=== PATIENT | female | born 1985 | race African-American/Black ===

== ENCOUNTER 2019-02-23 09:37 | Emergency (ER) | payer OTHER ==
[2019-02-23 09:43] VITALS: BP 109/72; PULSE 90; TEMP 98.4; BMI 21.1
[2019-02-23 11:55] LABS: BASO % 0.5 % (0-2.0); EOS % 1.4 % (0-4.5); HEMATOCRIT 35.2 % (32.4-45.2); HEMOGLOBIN 11.7 GM/dL (10.7-15.3); LYMPH % 52.5 % (8-40); MCH 29.1 pg (25.7-33.7); MCHC 33.3 g/dl (32.0-36.0); MEAN CELL VOLUME 87.6 fl (80-96); MEAN PLT VOLUME 8.5 fl (7.5-11.1); MONO % 6.9 % (3.8-10.2); NEUT % 38.7 % (42.8-82.8); PLATELET COUNT 287 K/MM3 (134-434); RBC 4.01 M/mm3 (3.60-5.2); RDW 13.7 % (11.6-15.6); WHITE BLOOD COUNT 3.4 K/mm3 (4.0-10.0)
[2019-02-23 11:56] LABS: PH,URINE 5.5 (5.0-8.0); URINE APPEARANCE TURBID; URINE BILIRUBIN NEGATIVE (NEGATIVE); URINE COLOR DK YELLOW; URINE GLUCOSE (UA) NEGATIVE (NEGATIVE); URINE KETONE TRACE (NEGATIVE); URINE LEUK ESTERASE NEGATIVE (NEGATIVE); URINE NITRITE NEGATIVE (NEGATIVE); URINE PROTEIN TRACE (NEGATIVE); URINE UROBILINOGEN 0.2 mg/dL (0.2-1.0)
--- NOTE | 2019-02-23 11:59 | PDOC ---
History of Present Illness - General Chief Complaint: Pain Stated Complaint: RT LWR ABD PAIN / HEAVY CHEST Time Seen by Provider: 02/23/19 09:58 History Source: Patient Exam Limitations: No Limitations Past History - Travel Traveled outside of the country in the last 30 days: No Close contact w/someone who was outside of country & ill: No - Past Medical History Allergies/Adverse Reactions: Allergies Allergy/AdvReac Type Severity Reaction Status Date / Time Penicillins Allergy Unknown Verified 02/23/19 09:43 Home Medications: Ambulatory Orders Divalproex [Depakote -] 1,000 mg PO DAILY 01/23/15 Paroxetine HCl [Paxil] 90 mg PO DAILY 01/23/15 Ibuprofen [Motrin -] 400 mg PO Q6H #28 tablet 02/05/16 Ibuprofen 600 mg PO Q6H #30 tablet 02/23/19 Cardiac Disorders: Yes (PERICARDITIS) COPD: No Psychiatric Problems: Yes (ANXIETY/DEPRESSION.) - Suicide/Smoking/Psychosocial Hx Smoking History: Never smoked Number of Cigarettes Smoked Daily: 5 Information on smoking cessation initiated: No Hx Alcohol Use: No Drug/Substance Use Hx: No Substance Use Type: None Review of Systems - Review of Systems Able to Perform ROS?: Yes Comments:: 02/23/19 11:54 CONSTITUTIONAL: Absent: fever, chills, diaphoresis, generalized weakness, malaise, loss of appetite HEENT: Absent: rhinorrhea, nasal congestion, throat pain, throat swelling, difficulty swallowing, mouth swelling, ear pain, eye pain, visual Changes CARDIOVASCULAR: Present: chest tightness Absent: chest pain, loss of consciousness, palpitations , irregular heart rate, peripheral edema RESPIRATORY: Absent: cough, shortness of breath, dyspnea with exertion, orthopnea, wheezing, stridor, hemoptysis GASTROINTESTINAL: Present: lower abdominal pain Absent: abdominal distension, nausea, vomiting, diarrhea, constipation, melena, hematochezia GENITOURINARY: Absent: dysuria, frequency, urgency, hesitancy, hematuria, flank pain, genital pain MUSCULOSKELETAL: Absent: myalgia, arthralgia, joint swelling SKIN: Absent: rash, itching, pallor HEMATOLOGIC/IMMUNOLOGIC: Absent: easy bleeding, easy bruising, lymphadenopathy, frequent infections ENDOCRINE: Absent: unexplained weight gain, unexplained weight loss, heat intolerance, cold intolerance NEUROLOGIC: Absent: headache, focal weakness or paresthesias, dizziness, unsteady gait, seizure, mental status changes, bladder or bowel incontinence PSYCHIATRIC: Absent: anxiety, depression, suicidal or homicidal ideation, hallucinations. Is the patient limited Irish proficient: No *Physical Exam - Vital Signs Last Vital Signs Temp Pulse Resp BP Pulse Ox 98.4 F 90 19 109/72 100 02/23/19 09:41 02/23/19 09:41 02/23/19 09:41 02/23/19 09:41 02/23/19 09:41 - Physical Exam Comments: 02/23/19 11:50 GENERAL: Well developed, well nourished. Awake and alert. No acute distress. HEENT: Normocephalic, atraumatic. PERRLA, EOMI. No conjunctival pallor. Sclera are non- icteric. Moist mucous membranes. Oropharynx is clear. NECK: Supple. Full ROM. No JVD. Carotid pulses 2+ and symmetric, without bruits. No thyromegaly. No lymphadenopathy. CARDIOVASCULAR: Regular rate and rhythm. No murmurs, rubs, or gallops. Distal pulses are 2+ and symmetric. PULMONARY: No evidence of respiratory distress. Lungs clear to auscultation bilaterally. No wheezing, rales or rhonchi. ABDOMINAL: TTP of the R adenexal/lower quadrant over scar. Soft. Non-tender. Non- distended. No rebound or guarding. No organomegaly. Normoactive bowel sounds. MUSCULOSKELETAL Normal range of motion at all joints. No bony deformities or tenderness. No CVA tenderness. EXTREMITIES: No cyanosis. No clubbing. No edema. No calf tenderness. SKIN: Warm and dry. Normal capillary refill. No rashes. No jaundice. NEUROLOGICAL: Alert, awake, appropriate. Cranial nerves 2-12 intact. No deficits to light touch and temperature in face, upper extremities and lower extremities. No motor deficits in the in face, upper extremities and lower extremities. Normoreflexic in the upper and lower extremities. Normal speech. Toes are down- going bilaterally. Gait is normal without ataxia. PSYCHIATRIC: Cooperative. Good eye contact. Appropriate mood and affect. ED Treatment Course - LABORATORY CBC & Chemistry Diagram: 02/23/19 11:40 02/23/19 11:40 - RADIOLOGY Radiology Studies Ordered: Category Date Time Status TRANSVAGINAL ULTRASOUND US [US] Stat Ultrasound 02/23/19 10:41 Ordered Medical Decision Making - Medical Decision Making 02/23/19 13:54 The patient is a 33 y/o F with PMH of C-sections who presents to the ER today with lower abdominal pain. The patient states that she has had RLQ pain since 2014. The pain has been intermittent and fluctuates in intensity over the past 4 years. She notes the pain increased today so she came to the ER for evaluation. Of note she states that she was recently evaluated in [facility] where she had a negative CT scan one month ago. States LMP was two weeks ago. *DC/Admit/Observation/Transfer Diagnosis at time of Disposition: Atypical chest pain Ovarian cyst Qualifiers: Laterality: right Qualified Code(s): N83.201 - Unspecified ovarian cyst, right side - Discharge Dispostion Disposition: HOME Condition at time of disposition: Stable Decision to Admit order: No - Referrals Referrals: Jim Aguilar MD [Primary Care Provider] - Isauro Nicole MD [Staff Physician] - - Patient Instructions Printed Discharge Instructions: DI for Ovarian Cyst, DI for Atypical Chest Pain Additional Instructions: Your ultrasound shows a 2.1cm cyst on the R ovary This is most likely the cause of your pain Your lab work was normal Take Motrin 600mg every 6 hours as needed for pain Use warm compresses to the area Follow up with Dr. Nicole for further treatment options this week Return to the ER for worsening pain, heavy vaginal bleeding, fever, or if you have any new or concerning symptoms - Post Discharge Activity Forms/Work/School Notes: Back to Work
--- NOTE | 2019-02-23 12:29 | PDOC ---
*Physical Exam - Vital Signs Last Vital Signs Temp Pulse Resp BP Pulse Ox 98.4 F 90 19 109/72 100 02/23/19 09:41 02/23/19 09:41 02/23/19 09:41 02/23/19 09:41 02/23/19 09:41 - Physical Exam Comments: 02/23/19 12:28 The patient was examined by [MINO Locke] under my direct supervision. I personally evaluated the patient. I concur with the above findings and the plan of care. ED Treatment Course - LABORATORY CBC & Chemistry Diagram: 02/23/19 11:40 02/23/19 11:40 - ADDITIONAL ORDERS Additional order review: Laboratory Results 02/23/19 02/23/19 11:45 11:45 Urine Color Dk yellow Urine Appearance Turbid Urine pH 5.5 Ur Specific [place] 1.038 H Urine Protein Trace Urine Glucose (UA) Negative Urine Ketones Trace H Urine Blood Negative Urine Nitrite Negative Urine Bilirubin Negative Urine Urobilinogen 0.2 Ur Leukocyte Esterase Negative Urine HCG, Qual Negative 02/23/19 11:40 RBC 4.01 MCV 87.6 MCHC 33.3 RDW 13.7 D MPV 8.5 Neutrophils % 38.7 L Lymphocytes % 52.5 H Monocytes % 6.9 Eosinophils % 1.4 Basophils % 0.5 *DC/Admit/Observation/Transfer Diagnosis at time of Disposition: Ovarian cyst, Atypical chest pain - Discharge Dispostion Disposition: HOME Condition at time of disposition: Stable - Prescriptions Prescriptions: Ibuprofen 600 mg PO Q6H #30 tablet - Referrals Referrals: Jim Aguilar MD [Primary Care Provider] - Isauro Nicole MD [Staff Physician] - - Patient Instructions Printed Discharge Instructions: DI for Ovarian Cyst, DI for Atypical Chest Pain Additional Instructions: Your ultrasound shows a 2.1cm cyst on the R ovary This is most likely the cause of your pain Your lab work was normal Take Motrin 600mg every 6 hours as needed for pain Use warm compresses to the area Follow up with Dr. Nicole for further treatment options this week Return to the ER for worsening pain, heavy vaginal bleeding, fever, or if you have any new or concerning symptoms - Post Discharge Activity Forms/Work/School Notes: Back to Work
[2019-02-23 12:30] LABS: ALBUMIN 4.1 g/dl (3.4-5.0); BILIRUBIN,TOTAL 0.6 mg/dL (0.2-1); BLOOD UREA NITROGEN 6.2 mg/dL (7-18); CALCIUM 9.6 mg/dL (8.5-10.1); CREATININE 0.7 mg/dL (0.55-1.3); POTASSIUM 4.2 mmol/L (3.5-5.1); TOT PROT 6.8 g/dl (6.4-8.2)
[2019-02-23] MEDS ORDERED: IBUPROFEN 400 MG TABLET (FP) PO ONE ×2 (12:57→13:13)
--- NOTE | 2019-02-23 15:00 | EKG ---
Test Reason : Blood Pressure : / mmHG Vent. Rate : 060 BPM Atrial Rate : 060 BPM P-R Int : 000 ms QRS Dur : 078 ms QT Int : 388 ms P-R-T Axes : 000 113 142 degrees QTc Int : 388 ms JUNCTIONAL RHYTHM SEPTAL INFARCT , AGE UNDETERMINED LATERAL INFARCT , AGE UNDETERMINED ABNORMAL ECG WHEN COMPARED WITH ECG OF 23-JAN-2015 11:46, JUNCTIONAL RHYTHM HAS REPLACED SINUS RHYTHM QRS AXIS SHIFTED RIGHT SEPTAL INFARCT IS NOW PRESENT LATERAL INFARCT IS NOW PRESENT T WAVE INVERSION NOW EVIDENT IN LATERAL LEADS Confirmed by GUSTAVO BENTON, NHAN ([id number]) on 02/23/2019 3:00:44 PM Referred By: Confirmed By:NHAN CHEN MD
== END 2019-02-23 13:54 | disposition home or self-care (01) ==
LOC: JER 09:37
DX: R07.9 Chest pain, unspecified (principal); N83.201 Unspecified ovarian cyst, right side
CPT/HCPCS: 36415; 76830-TC; 80053; 81003; 82550; 84484; 84703; 85025; 87077; 87086; 93005; 93010; 99283-25

== ENCOUNTER 2023-03-24 09:50 | Emergency (ER) | payer OTHER ==
[2023-03-24 10:06] VITALS: BP 115/67; PULSE 95; RESP 18; TEMP 98.5; BMI 26.6
[2023-03-24 11:32] LABS: BASO % 0.5 % (0-2.0); EOS % 0.9 % (0-4.5); HEMATOCRIT 38.1 % (32.4-45.2); HEMOGLOBIN 12.8 GM/dL (10.7-15.3); LYMPH % 35.6 % (8-40); MCH 29.5 pg (25.7-33.7); MCHC 33.6 g/dl (32.0-36.0); MEAN CELL VOLUME 87.9 fl (80-96); MEAN PLT VOLUME 8.5 fl (7.5-11.1); MONO % 7.7 % (3.8-10.2); NEUT % 55.3 % (42.8-82.8); PLATELET COUNT 301 10^3/uL (134-434); RBC 4.33 M/mm3 (3.60-5.2); RDW 14.5 % (11.6-15.6)
[2023-03-24 11:41] LABS: INR 1.1 (0.83-1.09); PROTHROMBIN TIME (PATIENT) 12.8 SEC (9.7-13.0)
[2023-03-24 11:56] LABS: CHLORIDE 106 mmol/L (98-107); POTASSIUM 3.7 mmol/L (3.5-5.1); SODIUM 139 mmol/L (136-145)
[2023-03-24 11:58] LABS: ALBUMIN 3.7 g/dl (3.4-5.0); BLOOD UREA NITROGEN 6.6 mg/dL (7-18); CALCIUM 9.3 mg/dL (8.5-10.1); GLUCOSE,RANDOM 92 mg/dL (74-106)
[2023-03-24 11:59] LABS: MAGNESIUM 2.1 mg/dL (1.8-2.4)
[2023-03-24 12:00] LABS: ANION GAP 4 mmol/L (4-13); CO2 29 mmol/L (21-32)
[2023-03-24 12:01] LABS: CREATININE 0.8 mg/dL (0.55-1.3); SGOT/AST 19 U/L (15-37); SGPT/ALT 17 U/L (13-61)
[2023-03-24 12:03] LABS: BILIRUBIN,TOTAL 0.6 mg/dL (0.2-1); TOT PROT 7.1 g/dl (6.4-8.2)
[2023-03-24 12:04] LABS: ALK PHOS 46 U/L (45-117)
[2023-03-24 12:07] LABS: N-TERMINAL BNP 32.5 pg/ml (5-125)
== END 2023-03-24 16:23 | disposition home or self-care (01) ==
LOC: JER 09:50
DX: R07.9 Chest pain, unspecified (principal); M79.662 Pain in left lower leg; R06.02 Shortness of breath
CPT/HCPCS: 36415; 71046-TC-FY; 80053; 83735; 83880; 84484; 84702; 84703; 85025; 85610; 85730; 86850; 86900; 86901; 93005; 93010; 93970-TC; 99285-25

== ENCOUNTER 2023-03-27 09:01 | Emergency (ER) | payer OTHER ==
[2023-03-27 09:22] VITALS: BP 119/80; PULSE 95; RESP 18; TEMP 98; BMI 27.1
[2023-03-27 11:34] LABS: BASO % 0.8 % (0-2.0); EOS % 0.8 % (0-4.5); HEMATOCRIT 37.1 % (32.4-45.2); HEMOGLOBIN 12.7 GM/dL (10.7-15.3); LYMPH % 42.2 % (8-40); MCHC 34.2 g/dl (32.0-36.0); MEAN CELL VOLUME 87.5 fl (80-96); MEAN PLT VOLUME 8.9 fl (7.5-11.1); MONO % 8.3 % (3.8-10.2); NEUT % 47.9 % (42.8-82.8); PLATELET COUNT 299 10^3/uL (134-434); POTASSIUM 3.8 mmol/L (3.5-5.1); RBC 4.24 M/mm3 (3.60-5.2); RDW 14.5 % (11.6-15.6); WHITE BLOOD COUNT 4.2 K/mm3 (4.0-10.0)
[2023-03-27 11:36] LABS: ALBUMIN 3.6 g/dl (3.4-5.0); CALCIUM 9.7 mg/dL (8.5-10.1)
[2023-03-27 11:37] LABS: BLOOD UREA NITROGEN 5.4 mg/dL (7-18)
[2023-03-27 11:39] LABS: CREATININE 0.8 mg/dL (0.55-1.3)
[2023-03-27 11:41] LABS: BILIRUBIN,TOTAL 0.9 mg/dL (0.2-1)
== END 2023-03-27 12:52 | disposition home or self-care (01) ==
LOC: JER 09:01
DX: R07.9 Chest pain, unspecified (principal); M79.605 Pain in left leg
CPT/HCPCS: 36415; 71046-TC-FY; 80053; 84484; 84703; 85025; 93005; 93010; 93308; 99285-25

== ENCOUNTER 2023-04-19 08:39 | Emergency (ER) | payer OTHER ==
[2023-04-19 08:54] VITALS: TEMP 98.7; BMI 26.6
[2023-04-19] MEDS ORDERED: LACTATED RINGERS SOLUTION 1000 ML INFUS.BAG IV ONE (09:45)
[2023-04-19] MEDS ORDERED: ACETAMINOPHEN 1000 MG/100 ML BAG IVPB ONE (09:46)
[2023-04-19] MEDS ORDERED: METOCLOPRAMIDE HCL INJECTION 10 MG/2 ML VIAL IVPUSH ONE (09:46)
[2023-04-19] MEDS ORDERED: METOCLOPRAMIDE HCL INJECTION 10 MG/2 ML VIAL ONE (10:17)
[2023-04-19] MEDS ORDERED: ACETAMINOPHEN INJECTION 100 ML IVPB ONE (10:18)
[2023-04-19 10:38] LABS: BASO % 1.2 % (0-2.0); EOS % 0.6 % (0-4.5); HEMATOCRIT 40.6 % (32.4-45.2); HEMOGLOBIN 13.7 GM/dL (10.7-15.3); MCH 29.6 pg (25.7-33.7); MCHC 33.7 g/dl (32.0-36.0); MEAN CELL VOLUME 87.8 fl (80-96); MEAN PLT VOLUME 8.2 fl (7.5-11.1); MONO % 7.4 % (3.8-10.2); NEUT % 49.8 % (42.8-82.8); PLATELET COUNT 317 10^3/uL (134-434); RBC 4.62 M/mm3 (3.60-5.2); RDW 14.1 % (11.6-15.6); WHITE BLOOD COUNT 4.8 K/mm3 (4.0-10.0)
[2023-04-19 10:39] LABS: INR 1.1 (0.83-1.09); PROTHROMBIN TIME (PATIENT) 12.8 SEC (9.7-13.0)
[2023-04-19 10:41] LABS: ACTIVATED PTT 35.2 SECONDS (25.2-36.5)
[2023-04-19 10:47] LABS: POTASSIUM 4.2 mmol/L (3.5-5.1)
[2023-04-19 10:49] LABS: ALBUMIN 3.6 g/dl (3.4-5.0); CALCIUM 9.4 mg/dL (8.5-10.1)
[2023-04-19 10:50] LABS: BLOOD UREA NITROGEN 5.9 mg/dL (7-18); MAGNESIUM 2.3 mg/dL (1.8-2.4)
[2023-04-19 10:53] LABS: CREATININE 0.8 mg/dL (0.55-1.3)
[2023-04-19 10:54] LABS: BILIRUBIN,TOTAL 0.5 mg/dL (0.2-1); TOT PROT 7.2 g/dl (6.4-8.2)
[2023-04-19 11:00] LABS: PH,URINE 6.5 (5.0-8.0); URINE APPEARANCE CLEAR; URINE BILIRUBIN NEGATIVE (NEGATIVE); URINE COLOR YELLOW; URINE GLUCOSE (UA) NEGATIVE (NEGATIVE); URINE KETONE NEGATIVE (NEGATIVE); URINE LEUK ESTERASE NEGATIVE (NEGATIVE); URINE NITRITE NEGATIVE (NEGATIVE); URINE PROTEIN NEGATIVE (NEGATIVE); URINE UROBILINOGEN 0.2 mg/dL (0.2-1.0)
[2023-04-19 12:46] VITALS: BP 115/61; PULSE 60; RESP 16
== END 2023-04-19 12:30 | disposition home or self-care (01) ==
LOC: JER 08:39
PROC: 3E033NZ Introduction of Analgesics, Hypnotics, Sedatives into Peripheral Vein, Percutaneous Approach (ICD-10-PCS; principal; 2023-04-19)
PROC: 3E033GC Introduction of Other Therapeutic Substance into Peripheral Vein, Percutaneous Approach (ICD-10-PCS; 2023-04-19)
DX: R07.9 Chest pain, unspecified (principal); R51.9 Headache, unspecified; Z20.822 Contact with and (suspected) exposure to COVID-19
CPT/HCPCS: 36415; 71045-TC-FY; 80053; 81003; 83735; 84484; 85025; 85379; 85610; 85730; 87086; 87635; 93005; 93010; 99285-25

== ENCOUNTER 2023-06-20 08:25 | Emergency (ER) | payer OTHER ==
[2023-06-20 08:37] VITALS: BP 145/72; PULSE 111; RESP 18; TEMP 99.8; BMI 27.1
[2023-06-20] MEDS ORDERED: KETOROLAC TROMETHAMINE 30 MG/1 ML VIAL IVPUSH ONE (09:21)
[2023-06-20] MEDS ORDERED: SODIUM CHLORIDE 0.9% 500 ML INFUS.BAG IV ONE (09:21)
[2023-06-20] MEDS ORDERED: KETOROLAC TROMETHAMINE 30 MG/1 ML VIAL ONE (09:51)
== END 2023-06-20 13:07 | disposition home or self-care (01) ==
LOC: JERFT 08:25
PROC: 3E033NZ Introduction of Analgesics, Hypnotics, Sedatives into Peripheral Vein, Percutaneous Approach (ICD-10-PCS; principal; 2023-06-20)
DX: R05.9 Cough, unspecified (principal); R51.9 Headache, unspecified; R09.81 Nasal congestion; U07.1 COVID-19
CPT/HCPCS: 0241U-QW; 99284-25

== ENCOUNTER 2023-07-01 09:05 | Emergency (ER) | payer OTHER ==
[2023-07-01 09:23] VITALS: RESP 18; BMI 24.7
[2023-07-01] MEDS ORDERED: KETOROLAC TROMETHAMINE 15 MG/ML VIAL IVPUSH ONE (09:42)
[2023-07-01] MEDS ORDERED: KETOROLAC TROMETHAMINE 15 MG/ML VIAL ONE (09:46)
[2023-07-01 10:09] LABS: BASO % 0.7 % (0-2.0); EOS % 0.6 % (0-4.5); HEMOGLOBIN 12.7 GM/dL (10.7-15.3); LYMPH % 35.7 % (8-40); MCH 29.8 pg (25.7-33.7); MCHC 34.3 g/dl (32.0-36.0); MEAN CELL VOLUME 86.9 fl (80-96); MEAN PLT VOLUME 7.6 fl (7.5-11.1); MONO % 9.1 % (3.8-10.2); NEUT % 53.9 % (42.8-82.8); PLATELET COUNT 389 10^3/uL (134-434); RBC 4.26 M/mm3 (3.60-5.2); RDW 13.5 % (11.6-15.6); WHITE BLOOD COUNT 4.6 K/mm3 (4.0-10.0)
[2023-07-01 10:31] LABS: CHLORIDE 106 mmol/L (98-107); SODIUM 136 mmol/L (136-145)
[2023-07-01 10:34] LABS: CALCIUM 9.4 mg/dL (8.5-10.1)
[2023-07-01 10:35] LABS: ALBUMIN 3.3 g/dl (3.4-5.0); ANION GAP 3 mmol/L (4-13); BLOOD UREA NITROGEN 5.2 mg/dL (7-18); CO2 27 mmol/L (21-32); GLUCOSE,RANDOM 88 mg/dL (74-106)
[2023-07-01 10:38] LABS: CREATININE 0.8 mg/dL (0.55-1.3); SGPT/ALT 13 U/L (13-61)
[2023-07-01 10:39] LABS: BILIRUBIN,TOTAL 0.5 mg/dL (0.2-1); SGOT/AST 13 U/L (15-37)
[2023-07-01 10:41] LABS: ALK PHOS 47 U/L (45-117); TOT PROT 6.9 g/dl (6.4-8.2)
[2023-07-01 10:58] LABS: ERYTHROCYTE SEDIMENTATION RATE 16 mm/hr (0-20)
[2023-07-01 14:16] VITALS: BP 119/68; PULSE 78; TEMP 98.3
== END 2023-07-01 14:16 | disposition home or self-care (01) ==
LOC: JER 09:05
PROC: 3E0333Z Introduction of Anti-inflammatory into Peripheral Vein, Percutaneous Approach (ICD-10-PCS; principal; 2023-07-01)
DX: R07.89 Other chest pain (principal); R06.02 Shortness of breath; I31.39 Other pericardial effusion (noninflammatory)
CPT/HCPCS: 36415; 71046-TC-FY; 80053; 84484; 84703; 85025; 85379; 85651; 86140; 93005; 93010; 99285-25

== ENCOUNTER 2023-08-08 08:36 | Emergency (ER) | payer OTHER ==
[2023-08-08 09:00] VITALS: BP 146/74; PULSE 78; RESP 18; TEMP 98.2; BMI 27.2
[2023-08-08] MEDS ORDERED: KETOROLAC TROMETHAMINE 15 MG/ML VIAL ONE (12:02)
[2023-08-08] MEDS: KETOROLAC TROMETHAMINE 15 MG/ML VIAL IM ONE (12:07)
== END 2023-08-08 12:55 | disposition home or self-care (01) ==
LOC: JER 08:36
PROC: 3E0233Z Introduction of Anti-inflammatory into Muscle, Percutaneous Approach (ICD-10-PCS; principal; 2023-08-08)
DX: M79.604 Pain in right leg (principal); M79.605 Pain in left leg; M79.89 Other specified soft tissue disorders; M25.552 Pain in left hip
CPT/HCPCS: 73502-TC-LT-FY; 93971-TC; 99284-25

== ENCOUNTER 2023-09-07 06:45 | Emergency (ER) | payer OTHER ==
[2023-09-07 07:10] VITALS: BP 105/72; PULSE 82; RESP 18; TEMP 98.2; BMI 26.6
[2023-09-07] MEDS: ACETAMINOPHEN 1000 MG/100 ML BAG IVPB ONE (08:34)
[2023-09-07] MEDS ORDERED: ACETAMINOPHEN INJECTION 100 ML IVPB ONE (08:35)
[2023-09-07 08:41] LABS: BASO % 0.7 % (0-2.0); EOS % 4.7 % (0-4.5); HEMATOCRIT 31.2 % (32.4-45.2); HEMOGLOBIN 10.2 GM/dL (10.7-15.3); LYMPH % 32.4 % (8-40); MCH 28.6 pg (25.7-33.7); MCHC 32.8 g/dl (32.0-36.0); MEAN CELL VOLUME 87.1 fl (80-96); MEAN PLT VOLUME 7.8 fl (7.5-11.1); MONO % 10.1 % (3.8-10.2); NEUT % 52.1 % (42.8-82.8); PLATELET COUNT 288 10^3/uL (134-434); RBC 3.58 M/mm3 (3.60-5.2); RDW 13.9 % (11.6-15.6); WHITE BLOOD COUNT 4.4 K/mm3 (4.0-10.0)
[2023-09-07 08:49] LABS: INR 1.09 (0.83-1.09); PROTHROMBIN TIME (PATIENT) 12.6 SEC (9.7-13.0)
[2023-09-07 08:51] LABS: ACTIVATED PTT 34.2 SECONDS (25.2-36.5)
[2023-09-07 08:58] LABS: POTASSIUM 4.2 mmol/L (3.5-5.1)
[2023-09-07 09:00] LABS: CALCIUM 9.1 mg/dL (8.5-10.1)
[2023-09-07 09:01] LABS: ALBUMIN 3.2 g/dl (3.4-5.0); BLOOD UREA NITROGEN 9.4 mg/dL (7-18)
[2023-09-07 09:04] LABS: BILIRUBIN,TOTAL 0.3 mg/dL (0.2-1); CREATININE 0.7 mg/dL (0.55-1.3)
[2023-09-07 09:06] LABS: TOT PROT 6.4 g/dl (6.4-8.2)
[2023-09-07] MEDS ORDERED: INSULIN (NOVOLOG MIX 70/30) 100 UNITS/ML MDV SQ ONE (09:42)
[2023-09-07 11:19] LABS: URINE APPEARANCE BLOODY; URINE BILIRUBIN NEGATIVE (NEGATIVE); URINE COLOR RED; URINE GLUCOSE (UA) NEGATIVE (NEGATIVE)
[2023-09-07 11:20] LABS: PH,URINE 7.5 (5.0-8.0); URINE KETONE NEGATIVE (NEGATIVE); URINE LEUK ESTERASE NEGATIVE (NEGATIVE); URINE NITRITE NEGATIVE (NEGATIVE); URINE PROTEIN 1+ (NEGATIVE); URINE UROBILINOGEN 0.2 mg/dL (0.2-1.0)
[2023-09-07 11:21] LABS: URINE BACTERIA NEGATIVE /uL (0-1359); URINE RBC TNTC /uL (0-23.9); URINE WBC 0-5 /uL (0-25.8)
== END 2023-09-07 11:55 | disposition home or self-care (01) ==
LOC: JER 06:45
PROC: 3E030NZ Introduction of Analgesics, Hypnotics, Sedatives into Peripheral Vein, Open Approach (ICD-10-PCS; principal; 2023-09-07)
DX: R07.9 Chest pain, unspecified (principal); M79.604 Pain in right leg; R05.9 Cough, unspecified; R10.9 Unspecified abdominal pain; Z20.822 Contact with and (suspected) exposure to COVID-19
CPT/HCPCS: 0241U-QW; 36415; 71045-TC-FY; 80053; 81003; 83605; 83735; 84484; 85025; 85610; 85730; 86850; 86870; 86880; 86900; 86901; 86902; 87086; 93005; 93010; 96374; 99285-25; J0131

== ENCOUNTER 2023-10-13 09:09 | Emergency (ER) | payer OTHER ==
[2023-10-13 10:00] VITALS: RESP 17; BMI 26.8
[2023-10-13] MEDS ORDERED: ACETAMINOPHEN INJECTION 100 ML IVPB ONE (10:50)
[2023-10-13] MEDS: LACTATED RINGERS SOLUTION 1000 ML INFUS.BAG IV ONE (11:29)
[2023-10-13] MEDS: ACETAMINOPHEN 1000 MG/100 ML BAG IVPB ONE (11:29)
[2023-10-13 11:55] LABS: BASO % 0.8 % (0-2.0); EOS % 2.9 % (0-4.5); HEMATOCRIT 34.5 % (32.4-45.2); HEMOGLOBIN 11.3 GM/dL (10.7-15.3); LYMPH % 42.7 % (8-40); MCH 27.3 pg (25.7-33.7); MCHC 32.9 g/dl (32.0-36.0); MEAN CELL VOLUME 82.9 fl (80-96); MEAN PLT VOLUME 8.5 fl (7.5-11.1); MONO % 7.5 % (3.8-10.2); NEUT % 46.1 % (42.8-82.8); PLATELET COUNT 361 10^3/uL (134-434); RBC 4.16 M/mm3 (3.60-5.2); RDW 13.9 % (11.6-15.6); WHITE BLOOD COUNT 4.6 K/mm3 (4.0-10.0)
[2023-10-13 12:09] LABS: ALBUMIN 3.8 g/dl (3.4-5.0); BLOOD UREA NITROGEN 6.9 mg/dL (7-18); CALCIUM 9.5 mg/dL (8.5-10.1); MAGNESIUM 2.2 mg/dL (1.8-2.4)
[2023-10-13 12:12] LABS: CREATININE 0.8 mg/dL (0.55-1.3)
[2023-10-13 12:14] LABS: BILIRUBIN,TOTAL 0.3 mg/dL (0.2-1); TOT PROT 7.5 g/dl (6.4-8.2)
[2023-10-13 14:49] VITALS: BP 117/62; PULSE 68; TEMP 98.6
== END 2023-10-13 14:49 | disposition home or self-care (01) ==
LOC: JER 09:09
PROC: 3E030NZ Introduction of Analgesics, Hypnotics, Sedatives into Peripheral Vein, Open Approach (ICD-10-PCS; principal; 2023-10-13)
DX: R07.89 Other chest pain (principal); R42 Dizziness and giddiness; R06.02 Shortness of breath; R00.2 Palpitations
CPT/HCPCS: 36415; 71046-TC-FY; 80053; 82962; 83735; 84439; 84484; 84703; 85025; 86850; 86870; 86880; 86900; 86901; 86902; 93005; 93010; 96372; 99285-25; J0131

== ENCOUNTER 2023-10-25 12:11 | Emergency (ER) | payer OTHER ==
[2023-10-25 12:21] VITALS: BP 108/70; PULSE 80; RESP 18; TEMP 99; BMI 26.6
[2023-10-25] MEDS: NEOMYCIN/POLYMYXN/HC OTIC SUSPENSION 10 ML BOTTLE AD ONE (13:23)
== END 2023-10-25 13:38 | disposition home or self-care (01) ==
LOC: JERFT 12:11
DX: H92.01 Otalgia, right ear (principal); H60.591 Other noninfective acute otitis externa, right ear
CPT/HCPCS: 99283-25

== ENCOUNTER 2024-03-09 09:28 | Emergency (ER) | payer OTHER ==
[2024-03-09 09:46] VITALS: RESP 16; BMI 27.3
[2024-03-09 10:56] LABS: HEMATOCRIT 30.1 % (32.4-45.2); HEMOGLOBIN 9.2 GM/dL (10.7-15.3); MCH 21.8 pg (25.7-33.7); MCHC 30.7 g/dl (32.0-36.0); MEAN CELL VOLUME 71.1 fl (80-96); MEAN PLT VOLUME 8.2 fl (7.5-11.1); PLATELET COUNT 350 10^3/uL (134-434); RBC 4.24 M/mm3 (3.60-5.2); RDW 16.9 % (11.6-15.6); WHITE BLOOD COUNT 3.3 K/mm3 (4.0-10.0)
[2024-03-09] MEDS ORDERED: MAG HYDROX/AL HYDROX/SIMETH 30 ML UNIT-DOSE CUP ONE (10:57)
[2024-03-09] MEDS ORDERED: FAMOTIDINE 20 MG TABLET ONE (10:57)
[2024-03-09] MEDS: MAG HYDROX/AL HYDROX/SIMETH -MYLANTA- ORAL SUSPENSION PO ONE (11:01)
[2024-03-09] MEDS: FAMOTIDINE 20 MG TABLET PO ONE (11:01)
[2024-03-09 11:08] LABS: PH,URINE 5.5 (5.0-8.0); URINE APPEARANCE CLOUDY; URINE BILIRUBIN NEGATIVE (NEGATIVE); URINE COLOR YELLOW; URINE GLUCOSE (UA) NEGATIVE (NEGATIVE); URINE KETONE NEGATIVE (NEGATIVE); URINE LEUK ESTERASE NEGATIVE (NEGATIVE); URINE NITRITE NEGATIVE (NEGATIVE); URINE PROTEIN NEGATIVE (NEGATIVE); URINE UROBILINOGEN 0.2 mg/dL (0.2-1.0)
[2024-03-09 11:30] LABS: POTASSIUM 4.2 mmol/L (3.5-5.1)
[2024-03-09 11:32] LABS: ANISOCYTOSIS 0; CALCIUM 9.1 mg/dL (8.5-10.1); HELMET CELLS 0; HOWELL-JOLLY BODIES 0; MACROCYTOSIS 0; OVALOCYTE 0; ROULEAU 0; SICKELED CELLS 0; TARGET CELLS 0; TEAR DROP CELLS 0; TOXIC GRANULATION 0
[2024-03-09 11:33] LABS: ALBUMIN 3.3 g/dl (3.4-5.0)
[2024-03-09 11:36] LABS: CREATININE 0.8 mg/dL (0.55-1.3)
[2024-03-09 11:37] LABS: BILIRUBIN,TOTAL 0.5 mg/dL (0.2-1); TOT PROT 6.6 g/dl (6.4-8.2)
[2024-03-09 12:45] LABS: HIV INTERPRETATION NEGATIVE (NEGATIVE)
[2024-03-09] MEDS ORDERED: FLUCONAZOLE 150 MG TABLET PO ONE (13:02)
[2024-03-09] MEDS: FLUCONAZOLE 150 MG TABLET PO ONE (13:28)
[2024-03-09 14:05] LABS: HCG,QUALITATIVE URINE Negative
[2024-03-09 14:16] VITALS: BP 108/59; PULSE 70; TEMP 97.9
== END 2024-03-09 14:44 | disposition home or self-care (01) ==
LOC: JER 09:28
DX: M94.0 Chondrocostal junction syndrome [Tietze] (principal); D50.9 Iron deficiency anemia, unspecified; N76.0 Acute vaginitis; R07.89 Other chest pain; R06.02 Shortness of breath
CPT/HCPCS: 36415; 71046-TC-FY; 80053; 81003; 84484; 84703; 85025; 86780; 86803; 87086; 87389; 87491; 87591; 87661; 93005; 93010; 93308; 99285-25

== ENCOUNTER 2024-04-14 11:22 | Emergency (ER) | payer OTHER ==
[2024-04-14 11:40] VITALS: BP 106/72; PULSE 85; RESP 17; TEMP 98.8; BMI 24.3
[2024-04-14] MEDS ORDERED: ACETAMINOPHEN 500 MG TABLET (FP) ONE (13:49)
[2024-04-14] MEDS: ACETAMINOPHEN 500 MG TABLET (FP) PO ONE (14:19)
[2024-04-14] MEDS: SODIUM CHLORIDE 0.9% 500 ML INFUS.BAG IV ONE ×3 (14:19→15:41)
[2024-04-14] MEDS ORDERED: METOCLOPRAMIDE HCL INJECTION 10 MG/2 ML VIAL ONE (14:26)
[2024-04-14] MEDS: METOCLOPRAMIDE HCL INJECTION 10 MG/2 ML VIAL IVPUSH ONE (14:33)
[2024-04-14 14:43] LABS: BASO % 0.6 % (0-2.0); EOS % 0.3 % (0-4.5); HEMATOCRIT 30.3 % (32.4-45.2); HEMOGLOBIN 9.3 GM/dL (10.7-15.3); LYMPH % 45.1 % (8-40); MCH 21.2 pg (25.7-33.7); MCHC 30.9 g/dl (32.0-36.0); MEAN CELL VOLUME 68.8 fl (80-96); MONO % 8.4 % (3.8-10.2); NEUT % 45.6 % (42.8-82.8); PLATELET COUNT 429 10^3/uL (134-434); RDW 17.7 % (11.6-15.6); WHITE BLOOD COUNT 5.9 K/mm3 (4.0-10.0)
[2024-04-14 14:44] LABS: EPI CELLS 10 /uL (0-25.1); HCG,QUALITATIVE URINE Negative; HYALINE CASTS 0 /uL (0-3.1); URINE APPEARANCE CLEAR; URINE BACTERIA 403 /uL (0-1359); URINE BILIRUBIN NEGATIVE (NEGATIVE); URINE COLOR YELLOW; URINE GLUCOSE (UA) NEGATIVE (NEGATIVE); URINE KETONE NEGATIVE (NEGATIVE); URINE LEUK ESTERASE NEGATIVE (NEGATIVE); URINE NITRITE NEGATIVE (NEGATIVE); URINE PROTEIN NEGATIVE (NEGATIVE); URINE RBC 9 /uL (0-23.9); URINE UROBILINOGEN 0.2 mg/dL (0.2-1.0); URINE WBC 2 /uL (0-25.8)
[2024-04-14 14:57] LABS: POTASSIUM 3.9 mmol/L (3.5-5.1)
[2024-04-14 14:59] LABS: BLOOD UREA NITROGEN 8.1 mg/dL (7-18); CALCIUM 10.1 mg/dL (8.5-10.1); MAGNESIUM 2.1 mg/dL (1.8-2.4)
[2024-04-14 15:03] LABS: CREATININE 0.8 mg/dL (0.55-1.3)
[2024-04-14 15:04] LABS: BILIRUBIN,TOTAL 0.7 mg/dL (0.2-1); TOT PROT 7.8 g/dl (6.4-8.2)
[2024-04-14 15:07] LABS: ANISOCYTOSIS 2+; MACROCYTOSIS 0
[2024-04-14 15:53] LABS: HIV INTERPRETATION NEGATIVE (NEGATIVE)
== END 2024-04-14 15:49 | disposition home or self-care (01) ==
LOC: JERFT 11:22 → JER 11:22 → JERFT 15:49
DX: R51.9 Headache, unspecified (principal); R09.81 Nasal congestion; R11.0 Nausea; R42 Dizziness and giddiness
CPT/HCPCS: 36415; 80053; 81003; 83735; 84703; 85025; 86803; 87086; 87389; 99283-25

== ENCOUNTER 2024-04-21 13:31 | Emergency (ER) | payer OTHER ==
[2024-04-21 13:54] VITALS: BP 122/79; RESP 19; TEMP 99.1; BMI 26.6
[2024-04-21 14:13] VITALS: PULSE 95
[2024-04-21] MEDS ORDERED: ACETAMINOPHEN 500 MG TABLET (FP) ONE (15:12)
[2024-04-21] MEDS ORDERED: predniSONE 20 MG TABLET (UD) ONE (15:12)
[2024-04-21] MEDS: ACETAMINOPHEN 500 MG TABLET (FP) PO ONE (15:21)
[2024-04-21] MEDS: predniSONE 20 MG TABLET (UD) PO ONE (15:21)
[2024-04-21 15:34] LABS: BASO % 0.7 % (0-2.0); EOS % 0.7 % (0-4.5); HEMATOCRIT 29.1 % (32.4-45.2); LYMPH % 40.2 % (8-40); MCH 21.4 pg (25.7-33.7); MCHC 30.9 g/dl (32.0-36.0); MEAN CELL VOLUME 69.1 fl (80-96); MEAN PLT VOLUME 7.8 fl (7.5-11.1); MONO % 7.8 % (3.8-10.2); NEUT % 50.6 % (42.8-82.8); PLATELET COUNT 429 10^3/uL (134-434); RBC 4.21 M/mm3 (3.60-5.2)
[2024-04-21 15:35] LABS: URINE APPEARANCE CLEAR; URINE BILIRUBIN NEGATIVE (NEGATIVE); URINE COLOR YELLOW; URINE GLUCOSE (UA) NEGATIVE (NEGATIVE); URINE KETONE TRACE (NEGATIVE); URINE LEUK ESTERASE NEGATIVE (NEGATIVE); URINE NITRITE NEGATIVE (NEGATIVE); URINE PROTEIN TRACE (NEGATIVE)
[2024-04-21 16:07] LABS: POTASSIUM 3.5 mmol/L (3.5-5.1)
[2024-04-21 16:52] LABS: ALBUMIN 3.7 g/dl (3.4-5.0); CALCIUM 9.9 mg/dL (8.5-10.1)
[2024-04-21 16:53] LABS: BLOOD UREA NITROGEN 6.8 mg/dL (7-18)
[2024-04-21 16:56] LABS: CREATININE 0.8 mg/dL (0.55-1.3)
[2024-04-21 16:57] LABS: BILIRUBIN,TOTAL 0.4 mg/dL (0.2-1)
[2024-04-21 18:45] LABS: ANISOCYTOSIS 2+; HELMET CELLS 1+; MACROCYTOSIS 0
== END 2024-04-21 17:14 | disposition home or self-care (01) ==
LOC: JER 13:31
DX: R07.89 Other chest pain (principal)
CPT/HCPCS: 36415; 71046-TC-FY; 80053; 81003; 84484; 85025; 87086; 93005; 93010; 99285-25

== ENCOUNTER 2024-11-03 20:38 | Emergency (ER) | payer OTHER ==
[2024-11-03 20:41] VITALS: BMI 24.4
[2024-11-03] MEDS ORDERED: ACETAMINOPHEN INJECTION 100 ML ONE (21:46)
[2024-11-03] MEDS: ACETAMINOPHEN 1000 MG/100 ML BAG IVPB ONE (21:47)
[2024-11-03 21:49] LABS: ABSOLUTE IMMATURE GRANULOCYTES 0.01 x10^3/uL (0.0-0.031); BASOPHILS # 0.01 x10^3/uL (0.01-0.08); EOSINOPHIL % 1.2 % (0.7-5.8); EOSINOPHILS # 0.07 x10^3/uL (0.04-0.36); HEMOGLOBIN 11.6 g/dL (11.2-15.7); MCHC 29.7 g/dl (32.2-35.5); MEAN CELL VOLUME 80.4 fl (79.4-94.8); MEAN PLT VOLUME 9.7 fl (9.4-12.3); MONOCYTE % 8.4 % (4.7-12.5); PLATELET COUNT 353 x10^3/uL (182-369); RDW 21.3 % (12.1-16.8)
[2024-11-03] MEDS: SODIUM CHLORIDE 0.9% 500 ML INFUS.BAG IV ONE (21:49)
[2024-11-03 22:08] LABS: POTASSIUM 3.6 mmol/L (3.5-5.1)
[2024-11-03 22:10] LABS: CALCIUM 10.9 mg/dL (8.5-10.1)
[2024-11-03 22:11] LABS: ALBUMIN 4.2 g/dl (3.4-5.0); BLOOD UREA NITROGEN 7.4 mg/dL (7-18)
[2024-11-03 22:14] LABS: CREATININE 0.8 mg/dL (0.55-1.3)
[2024-11-03 22:16] LABS: BILIRUBIN,TOTAL 0.4 mg/dL (0.2-1); TOT PROT 8.2 g/dl (6.4-8.2)
[2024-11-04 01:20] VITALS: BP 106/63; PULSE 66; RESP 16; TEMP 98
== END 2024-11-04 02:45 | disposition home or self-care (01) ==
LOC: JER 20:38
PROC: 3E033NZ Introduction of Analgesics, Hypnotics, Sedatives into Peripheral Vein, Percutaneous Approach (ICD-10-PCS; principal; 2024-11-03)
DX: R07.2 Precordial pain (principal)
CPT/HCPCS: 0241U-QW; 36415; 71046-TC-FY; 71275-TC; 80053; 83735; 84484; 84703; 85025; 85379; 93005; 93010; 99285-25; J0131

== ENCOUNTER 2024-12-12 09:07 | Emergency (ER) | payer OTHER ==
[2024-12-12] MEDS: ACETAMINOPHEN 500 MG TABLET (FP) PO ONE (09:30)
[2024-12-12] MEDS: FAMOTIDINE 20 MG TABLET PO ONE (09:30)
[2024-12-12] MEDS: MAG HYDROX/AL HYDROX/SIMETH 30 ML UNIT-DOSE CUP PO ONE (09:30)
[2024-12-12 09:34] VITALS: BP 107/61; PULSE 68; RESP 18; TEMP 98.5; BMI 23.6
[2024-12-12] MEDS ORDERED: MAG HYDROX/AL HYDROX/SIMETH 30 ML UNIT-DOSE CUP ONE (09:35)
[2024-12-12] MEDS ORDERED: ACETAMINOPHEN 500 MG TABLET (FP) ONE (09:38)
[2024-12-12] MEDS ORDERED: FAMOTIDINE 20 MG TABLET ONE (09:38)
== END 2024-12-12 10:10 | disposition home or self-care (01) ==
LOC: JER 09:07
DX: R10.13 Epigastric pain (principal)
CPT/HCPCS: 99283-25